=== PATIENT | male | born 1965 | race Two or more races ===

== ENCOUNTER → 2020-08-10 | Outpatient (CLI) | payer OTHER | END | disposition home or self-care (01) | LOC: OFIC 805 08:00 | PROVIDERS: ATTEND Otolaryngology Otology & Neurotology | DX: H93.11 Tinnitus, right ear (principal); H61.23 Impacted cerumen, bilateral ==

== ENCOUNTER 2020-09-05 22:47 | Emergency (ER) | payer OTHER ==
[~2020-09-05] VITALS: Ht 175.3 cm; Wt 55.8 kg
== END 2020-09-06 00:37 | disposition home or self-care (01) ==
LOC: ER 22:47
DX: R10.2 Pelvic and perineal pain (principal)

== ENCOUNTER 2020-09-19 07:06 | Outpatient (CLI) | payer OTHER | END 2020-09-19 15:00 | disposition home or self-care (01) | LOC: LAB 07:06 | PROVIDERS: ATTEND Urology | DX: N30.00 Acute cystitis without hematuria (principal); R97.21 Rising PSA following treatment for malignant neoplasm of prostate ==

== ENCOUNTER → 2020-10-02 15:53 | Outpatient (CLI) | payer OTHER | END | disposition home or self-care (01) | LOC: LAB 15:53 | PROVIDERS: ATTEND Urology | DX: R97.20 Elevated prostate specific antigen [PSA] (principal); N20.0 Calculus of kidney ==

== ENCOUNTER → 2020-11-02 | Outpatient (CLI) | payer OTHER | END | disposition home or self-care (01) | LOC: SONOGRAMA 07:09 | PROVIDERS: ATTEND Urology | DX: C61 Malignant neoplasm of prostate (principal); R97.20 Elevated prostate specific antigen [PSA] ==

== ENCOUNTER → 2021-05-29 08:47 | Outpatient (CLI) | payer OTHER | END | disposition home or self-care (01) | LOC: LAB 08:47 | PROVIDERS: ATTEND Urology | DX: C61 Malignant neoplasm of prostate (principal) ==